=== PATIENT | male | born 1990 | race Hispanic/Latino ===

== ENCOUNTER 2023-04-03 11:15 | Inpatient (IN) | payer OTHER ==
[~2023-04-03] VITALS: Ht 167.6 cm; Wt 106.7 kg
[2023-04-03 12:56] LABS: BASOPHILS % (AUTO) 0.1 % (0.0-5.0); HEMATOCRIT 46.1 % (42-54); LYMPHOCYTES % (AUTO) 7.6 % (21.0-51.0); MEAN CORPUSCULAR HEMOGLOBIN 28.3 pg (27.0-33.0); MEAN CORPUSCULAR HGB CONC 34.5 g/dL (32.0-36.0); MONOCYTES % (AUTO) 5.5 % (3.0-13.0); NEUTROPHILS % (AUTO) 86.5 % (40.0-77.0); PLATELET COUNT (AUTO) 169 K/uL (130-400); RED BLOOD CELL COUNT(AUTO) 5.62 MIL/uL (4.50-6.20); RED CELL DISTRIBUTION WIDTH 13.2 % (11.0-15.5); WHITE BLOOD COUNT (AUTO) 15.8 K/uL (4.8-10.8)
[2023-04-03 13:01] LABS: APPEARANCE,URINE CLEAR (CLEAR); BILIRUBIN,URINE NEGATIVE (NEGATIVE); COLOR,URINE LIGHT-YELLOW (YELLOW); GLUCOSE, URINE (UA) NEGATIVE (NEGATIVE); KETONES,URINE NEGATIVE (NEGATIVE); LEUKOCYTE ESTERASE ,URINE NEGATIVE Leu/uL (NEGATIVE); MUCUS,URINE RARE LPF (None Seen); NITRATE,URINE NEGATIVE (NEGATIVE); OCCULT BLOOD,URINE NEGATIVE (NEGATIVE); PROTEIN,URINE 10 mg/dL (NEGATIVE); RBC,URINE 0-1 /HPF (0-1); UROBILINOGEN,URINE 0.2 mg/dL (0.2-1.0); WBC,URINE 0-1 /HPF (0-1)
[2023-04-03 13:11] LABS: ALANINE AMINOTRANSFERASE 79 U/L (12-78); ALBUMIN 3.8 g/dL (3.5-5.0); ASPARTATE AMINOTRANSFERASE 33 U/L (10-37); CARBON DIOXIDE 28 mmol/L (21-32); CHLORIDE 102 mmol/L (101-111); CREATININE 1.1 mg/dL (0.5-1.5); GLOMERULAR FILTR. RATE CALC 90 mL/min (>90); GLUCOSE,RANDOM 108 mg/dL (70-105); POTASSIUM 4.1 mmol/L (3.5-5.1); SODIUM SERUM 139 mmol/L (136-145); TOTAL PROTEIN, SERUM 8.4 g/dL (6.0-8.3); UREA NITROGEN, BLOOD 16 mg/dL (7-18)
[2023-04-03 13:17] LABS: LIPASE < 50 U/L (114-286)
[2023-04-03] MEDS ORDERED: MAG/ALUM/SIMETH 30 ML UDCUP PO ONE (14:30)
[2023-04-03] MEDS ORDERED: KETOROLAC 30MG VIAL (30MG/ML) IVP ONE (14:30)
[2023-04-03] MEDS ORDERED: PANTOPRAZOLE 40 MG/VIAL IVP ONE (14:30)
[2023-04-03] MEDS ORDERED: LIDOCAINE HCL 2% VISCOUS 15 ML UDCUP PO ONE (14:30)
[2023-04-03] MEDS ORDERED: ZOSYN 3.375GM +NS 50ML IVPB ONE (15:00)
[2023-04-03 15:32] LABS: BASOPHILS % (AUTO) 0.1 % (0.0-5.0); HEMATOCRIT 46.5 % (42-54); LYMPHOCYTES % (AUTO) 7.9 % (21.0-51.0); MEAN CORPUSCULAR HEMOGLOBIN 28.2 pg (27.0-33.0); MEAN CORPUSCULAR HGB CONC 33.1 g/dL (32.0-36.0); MEAN CORPUSCULAR VOLUME 85.2 fL (79-99); MONOCYTES % (AUTO) 5.9 % (3.0-13.0); NEUTROPHILS % (AUTO) 85.8 % (40.0-77.0); PLATELET COUNT (AUTO) 170 K/uL (130-400); RED BLOOD CELL COUNT(AUTO) 5.46 MIL/uL (4.50-6.20); RED CELL DISTRIBUTION WIDTH 13.2 % (11.0-15.5); WHITE BLOOD COUNT (AUTO) 14.4 K/uL (4.8-10.8)
[2023-04-03 15:42] LABS: INR 0.94 (0.85-1.15); PROTHROMBIN TIME 10.3 SEC (9.6-11.6)
[2023-04-03 15:43] LABS: PARTIAL THROMBOPLASTIN TIME 29.1 SEC (26.3-35.5)
[2023-04-03 15:45] LABS: POTASSIUM 3.9 mmol/L (3.5-5.1)
[2023-04-03 15:49] LABS: ALBUMIN 3.8 g/dL (3.5-5.0)
[2023-04-03] MEDS ORDERED: ONDANSETRON 4MG INJ IVP PRN (16:00)
[2023-04-03] MEDS ORDERED: 0.9%NACL 50ML IV SCH (16:00)
[2023-04-03] MEDS ORDERED: ACETAMINOPHEN 500 MG TABLET PO PRN (16:00)
[2023-04-03 16:24] LABS: HEMOGLOBIN A1C 5.9 % (4.0-6.0)
[2023-04-03 16:26] LABS: TOTAL PROTEIN, SERUM 8.2 g/dL (6.0-8.3)
[2023-04-03] MEDS: LACTATED RINGERS 1000ML 1,000 ML IV SCH (16:29)
[2023-04-03] MEDS ORDERED: KETOROLAC 15MG/ML VIAL (15MG/ML) IV PRN (16:30)
[2023-04-03] MEDS ORDERED: MORPHINE 2 MG SYG IVP PRN (16:30)
[2023-04-03 16:44] LABS: AMPHET/METH SCREEN,URINE NEGATIVE (NEGATIVE); BARBITURATE SCREEN, URINE NEGATIVE (NEGATIVE); BENZODIAZEPINES SCREEN,URINE NEGATIVE (NEGATIVE); CANNABINOID SCREEN,URINE NEGATIVE (NEGATIVE); COCAINE SCREEN,URINE NEGATIVE (NEGATIVE); OPIATE SCREEN,URINE NEGATIVE (NEGATIVE); PHENCYCLIDINE SCREEN,URINE NEGATIVE (NEGATIVE)
[2023-04-03 17:06] LABS: CRP QUANTITATIVE 35.9 mg/L (0.00-9.0); THYROID STIMULATING HORMONE 1.08 uIU/mL (0.36-3.74)
[2023-04-04] MEDS: ZOSYN 3.375GM +NS 50ML IVPB SCH ×4 (00:10→20:37)
[2023-04-04 00:30] VITALS: BP 145/79
[2023-04-04 04:18] VITALS: BP 144/90
[2023-04-04] MEDS: LACTATED RINGERS 1000ML 1,000 ML IV SCH ×2 (04:18→19:58)
[2023-04-04 06:10] LABS: BASOPHILS % (AUTO) 0.1 % (0.0-5.0); EOSINOPHILS % (AUTO) 0.3 % (0.0-8.0); HEMATOCRIT 45.1 % (42-54); LYMPHOCYTES % (AUTO) 12.3 % (21.0-51.0); MEAN CORPUSCULAR HGB CONC 32.4 g/dL (32.0-36.0); MEAN CORPUSCULAR VOLUME 86.6 fL (79-99); MONOCYTES % (AUTO) 11.1 % (3.0-13.0); NEUTROPHILS % (AUTO) 75.8 % (40.0-77.0); PLATELET COUNT (AUTO) 155 K/uL (130-400); RED BLOOD CELL COUNT(AUTO) 5.21 MIL/uL (4.50-6.20); RED CELL DISTRIBUTION WIDTH 13.4 % (11.0-15.5); WHITE BLOOD COUNT (AUTO) 11.2 K/uL (4.8-10.8)
[2023-04-04 06:29] LABS: ALBUMIN 3.1 g/dL (3.5-5.0); CREATININE 1.3 mg/dL (0.5-1.5); MAGNESIUM 2.3 mg/dL (1.80-2.40); POTASSIUM 3.7 mmol/L (3.5-5.1); TOTAL PROTEIN, SERUM 7.4 g/dL (6.0-8.3)
[2023-04-04 07:30] VITALS: BP 139/91
[2023-04-04] MEDS: PANTOPRAZOLE 40 MG/VIAL IVP SCH (09:04)
[2023-04-04 11:00] VITALS: BP 141/93
[2023-04-04] MEDS ORDERED: LOSA100T59 PO (13:40)
[2023-04-04 16:00] VITALS: BP 138/85
[2023-04-04 20:08] VITALS: BP 142/82
[2023-04-05 00:26] VITALS: BP 130/73
[2023-04-05 04:23] VITALS: BP 145/81
[2023-04-05] MEDS: ZOSYN 3.375GM +NS 50ML IVPB SCH ×3 (04:34→20:19)
[2023-04-05 05:30] LABS: BASOPHILS % (AUTO) 0.2 % (0.0-5.0); HEMATOCRIT 43.3 % (42-54); LYMPHOCYTES % (AUTO) 12.2 % (21.0-51.0); MEAN CORPUSCULAR HEMOGLOBIN 28.3 pg (27.0-33.0); MEAN CORPUSCULAR HGB CONC 32.6 g/dL (32.0-36.0); MEAN CORPUSCULAR VOLUME 86.8 fL (79-99); MONOCYTES % (AUTO) 9.7 % (3.0-13.0); NEUTROPHILS % (AUTO) 76.5 % (40.0-77.0); PLATELET COUNT (AUTO) 147 K/uL (130-400); RED BLOOD CELL COUNT(AUTO) 4.99 MIL/uL (4.50-6.20); RED CELL DISTRIBUTION WIDTH 13.2 % (11.0-15.5); WHITE BLOOD COUNT (AUTO) 11.4 K/uL (4.8-10.8)
[2023-04-05 05:55] LABS: ALBUMIN 3.1 g/dL (3.5-5.0); CREATININE 1.2 mg/dL (0.5-1.5); MAGNESIUM 2.3 mg/dL (1.80-2.40); TOTAL PROTEIN, SERUM 7.5 g/dL (6.0-8.3)
[2023-04-05 08:00] VITALS: BP 123/86
[2023-04-05] MEDS: LACTATED RINGERS 1000ML 1,000 ML IV SCH ×2 (08:59→23:15)
[2023-04-05] MEDS: PANTOPRAZOLE 40 MG/VIAL IVP SCH (08:59)
[2023-04-05 12:00] VITALS: BP 143/83
[2023-04-05 16:00] VITALS: BP 135/84
[2023-04-05 20:00] VITALS: BP 132/69
[2023-04-06] VITALS (24 sets, daily range): BP systolic 90–142; BP diastolic 41–95
[2023-04-06] MEDS: ZOSYN 3.375GM +NS 50ML IVPB SCH ×4 (04:16→20:59)
[2023-04-06 05:39] LABS: BASOPHILS % (AUTO) 0.2 % (0.0-5.0); EOSINOPHILS % (AUTO) 2.5 % (0.0-8.0); HEMATOCRIT 41.8 % (42-54); LYMPHOCYTES % (AUTO) 16.4 % (21.0-51.0); MEAN CORPUSCULAR HGB CONC 32.5 g/dL (32.0-36.0); MEAN CORPUSCULAR VOLUME 86.2 fL (79-99); MONOCYTES % (AUTO) 10.3 % (3.0-13.0); NEUTROPHILS % (AUTO) 70.3 % (40.0-77.0); PLATELET COUNT (AUTO) 157 K/uL (130-400); RED BLOOD CELL COUNT(AUTO) 4.85 MIL/uL (4.50-6.20); RED CELL DISTRIBUTION WIDTH 13.2 % (11.0-15.5); WHITE BLOOD COUNT (AUTO) 9.6 K/uL (4.8-10.8)
[2023-04-06 06:20] LABS: ALBUMIN 2.7 g/dL (3.5-5.0); CREATININE 1.3 mg/dL (0.5-1.5); MAGNESIUM 2.2 mg/dL (1.80-2.40); POTASSIUM 3.6 mmol/L (3.5-5.1); TOTAL PROTEIN, SERUM 7.1 g/dL (6.0-8.3)
[2023-04-06] MEDS: PANTOPRAZOLE 40 MG/VIAL IVP SCH (08:45)
[2023-04-06] MEDS ORDERED: BUPIVACAINE/PF 0.25% 30ML VIAL IJ ONE (10:23)
[2023-04-06] MEDS ORDERED: LIDOCAINE HCL 1% 20 ML VIAL ONE (10:23)
[2023-04-06] MEDS ORDERED: LIDOCAINE PF 100MG/5ML (2%) SYRINGE 5ML ONE (10:39)
[2023-04-06] MEDS ORDERED: PROPOFOL 10 MG/ML 20ML VIAL IV ONE (10:39)
[2023-04-06] MEDS ORDERED: DEXAMETHASONE SOD PHOSPHATE 10MG/ML 1ML VIAL ONE (10:39)
[2023-04-06] MEDS ORDERED: SUCCINYLCHOLINE 200MG/10ML SYR ONE (10:39)
[2023-04-06] MEDS ORDERED: ONDANSETRON 4MG INJ ONE (10:39)
[2023-04-06] MEDS ORDERED: MIDAZOLAM HCL 1 MG/ML 2ML VIAL ONE (10:40)
[2023-04-06] MEDS ORDERED: ROCURONIUM 10MG/1ML SYR 10 MG/ML ML ONE ×2 (10:40→11:23)
[2023-04-06] MEDS ORDERED: FENTANYL CITRATE PF 50 MCG/1 ML 2ML VIAL ONE (10:40)
[2023-04-06] MEDS ORDERED: FENTANYL CITRATE PF 50 MCG/1 ML 5ML AMP IV ONE (11:22)
[2023-04-06] MEDS ORDERED: PIP/TAZ ZOSYN 3.375G 3.375 GM VIAL IVPB ONE (12:07)
[2023-04-06] MEDS ORDERED: NEOSTIGMINE 5MG/5ML SYR IV ONE (12:32)
[2023-04-06] MEDS ORDERED: GLYCOPYRROLATE 1 MG/5 ML SYRINGE ONE (12:32)
[2023-04-06] MEDS: LACTATED RINGERS 1000ML 1,000 ML IV SCH (15:01)
[2023-04-07] VITALS: BP 118/57
[2023-04-07] MEDS: LACTATED RINGERS 1000ML 1,000 ML IV SCH (02:58)
[2023-04-07 04:00] VITALS: BP 126/77
[2023-04-07] MEDS: ZOSYN 3.375GM +NS 50ML IVPB SCH (04:11)
[2023-04-07 05:09] LABS: BASOPHILS % (AUTO) 0.1 % (0.0-5.0); EOSINOPHILS % (AUTO) 0.2 % (0.0-8.0); HEMATOCRIT 40.1 % (42-54); LYMPHOCYTES % (AUTO) 14.8 % (21.0-51.0); MEAN CORPUSCULAR HEMOGLOBIN 28.4 pg (27.0-33.0); MEAN CORPUSCULAR HGB CONC 32.9 g/dL (32.0-36.0); MEAN CORPUSCULAR VOLUME 86.2 fL (79-99); MONOCYTES % (AUTO) 8.4 % (3.0-13.0); NEUTROPHILS % (AUTO) 76.1 % (40.0-77.0); PLATELET COUNT (AUTO) 194 K/uL (130-400); RED BLOOD CELL COUNT(AUTO) 4.65 MIL/uL (4.50-6.20); RED CELL DISTRIBUTION WIDTH 13.2 % (11.0-15.5); WHITE BLOOD COUNT (AUTO) 9.3 K/uL (4.8-10.8)
[2023-04-07 05:28] LABS: ALBUMIN 2.5 g/dL (3.5-5.0); BILIRUBIN,DIRECT 0.1 mg/dL (0.0-0.3); CREATININE 1.2 mg/dL (0.5-1.5); MAGNESIUM 2.2 mg/dL (1.80-2.40); POTASSIUM 3.9 mmol/L (3.5-5.1); TOTAL PROTEIN, SERUM 6.9 g/dL (6.0-8.3)
[2023-04-07 08:00] VITALS: BP 141/89
[2023-04-07] MEDS: PANTOPRAZOLE 40 MG/VIAL IVP SCH (08:14)
[2023-04-07] MEDS ORDERED: LOSA100T59 PO (10:36)
[2023-04-07 12:00] VITALS: BP 129/76
== END 2023-04-07 13:00 | disposition home or self-care (01) | DRG 418 ==
LOC: EDH 11:15 → EDHIP 11:16 → 3DH 04-04 00:30
PROVIDERS: ADMIT Internal Medicine; ATTEND Internal Medicine
PROC: 0FT44ZZ Resection of Gallbladder, Percutaneous Endoscopic Approach (ICD-10-PCS; principal; 2023-04-06 11:25)
DX: K80.00 Calculus of gallbladder with acute cholecystitis without obstruction (principal); K82.1 Hydrops of gallbladder; K21.9 Gastro-esophageal reflux disease without esophagitis; Z20.822 Contact with and (suspected) exposure to COVID-19; E66.09 Other obesity due to excess calories; E78.5 Hyperlipidemia, unspecified; I10 Essential (primary) hypertension; K66.0 Peritoneal adhesions (postprocedural) (postinfection); Z79.899 Other long term (current) drug therapy; Z68.38 Body mass index [BMI] 38.0-38.9, adult
CPT/HCPCS: 36415; 71045; 74181; 76705; 78227; 80048; 80053; 80061; 80076; 80305; 81001; 82550; 83036; 83605; 83690; 83735; 83880; 84145; 84443; 84484; 85025; 85610; 85651; 85730; 86140; 87040; 87077; 87088; 87186; 87635; 93005; 93306; 93356; A9537; C9113; G0378; J0330; J1100; J1885; J2001; J2250; J2270; J2405; J2543; J2704; J2710; J3010; J3490

== ENCOUNTER 2023-04-17 15:55 | Emergency (ER) | payer OTHER ==
[~2023-04-17] VITALS: Ht 167.6 cm; Wt 108.9 kg
[~2023-04-17 15:55] MED LIST: LOSA100T59 PO
[2023-04-17 17:40] VITALS: BP 149/90
== END 2023-04-17 17:58 | disposition home or self-care (01) ==
LOC: EDH 15:55
DX: Z48.02 Encounter for removal of sutures (principal)
CPT/HCPCS: 99281